=== PATIENT | male | born 1950 | race Caucasian/White ===

== ENCOUNTER 2018-10-11 22:40 | Emergency (ER) | payer BC ==
[~2018-10-11] VITALS: Ht 193 cm; Wt 121.8 kg
--- NOTE | 2018-10-11 23:05 | NUR ---
PT AMBULATORY TO ROOM FROM LOBBY
[2018-10-11] MEDS ORDERED: DIAZ2TAB3 PO (23:19)
[2018-10-11] MEDS ORDERED: TEST30SO SQ (23:19)
[2018-10-11] MEDS ORDERED: TRIA50CA PO (23:19)
--- NOTE | 2018-10-11 23:19 | NUR ---
DR. GOMEZ AT BEDSIDE TO SEE PATIENT, PT WITH RUPTURED VARICOSE VEIN IN R INNER ANKLE. BLEEDING CONTROLLED AT THIS TIME.
[2018-10-12 00:26] VITALS: BP 104/56
--- NOTE | 2018-10-12 00:26 | NUR ---
Patient/Caregiver given discharge instructions and they have confirmed that they understand the instructions. Patient ambulatory with steady gait.
== END 2018-10-12 00:28 | disposition home or self-care (01) ==
LOC: ED 10-12 00:10
DX: I83.892 Varicose veins of left lower extremity with other complications (principal)
CPT/HCPCS: 99284

== ENCOUNTER → 2020-02-04 | Outpatient (CLI) | payer MEDICARE ==
[~2020-02-04] MED LIST: DIAZ2TAB3 PO; FLUT9.9S NAS; TEST100V2 INJ; TEST30SO SQ; TRIA1CAP3 PO; TRIA50CA PO
[2020-02-04 11:17] LABS: BASOPHILS # (AUTO) 0.03 x10^3/uL (0-0.1); BASOPHILS % (AUTO) 1 % (0-1); EOSINOPHILS # (AUTO) 0.17 x10^3/uL (0-0.4); EOSINOPHILS % (AUTO) 3 % (1-7); LYMPHOCYTES % (AUTO) 21 % (22-44); MD NO; MEAN CORPUSCULAR HEMOGLOBIN 32.7 pg (27.5-34.5); MEAN CORPUSCULAR HGB CONC 33.8 g/dL (33.2-36.2); MEAN CORPUSCULAR VOLUME 96.7 fL (81-97); MEAN PLATELET VOLUME 6.5 fL (7.4-10.4); MONOCYTES # (AUTO) 0.46 x10^3/uL (0.2-0.8); MONOCYTES % (AUTO) 9 % (2-9); NEUTROPHILS # (AUTO) 3.45 x10^3/uL (1.8-6.8); NEUTROPHILS % (AUTO) 66 % (42-75); PLATELET COUNT 211 x10^3/uL (130-400); RED CELL DISTRIBUTION WIDTH 13.4 % (9.4-14.8)
[2020-02-04 11:26] LABS: ALANINE AMINOTRANSFERASE 25 U/L (12-78); ALBUMIN 3.8 g/dL (3.4-5.0); ANION GAP 4 mmol/L (5-15); CALCIUM 8.9 mg/dL (8.5-10.1); CHLORIDE 108 mmol/L (98-107); CREATININE 1.29 mg/dL (0.7-1.3)
[2020-02-04 11:29] LABS: ALKALINE PHOSPHATASE 49 U/L (45-117); BILIRUBIN,TOTAL 0.8 mg/dL (0.2-1.0); TOTAL PROTEIN 7.2 g/dL (6.4-8.2)
== END | disposition home or self-care (01) ==
LOC: STAR 10:05
PROVIDERS: ATTEND Surgery
DX: Z01.818 Encounter for other preprocedural examination (principal); I83.812 Varicose veins of left lower extremity with pain; M43.8X4 Other specified deforming dorsopathies, thoracic region; I44.4 Left anterior fascicular block; R94.31 Abnormal electrocardiogram [ECG] [EKG]
CPT/HCPCS: 36415; 71046; 80053; 85025; 93005

== ENCOUNTER 2020-02-12 10:02 | Day surgery (SDC) | payer MEDICARE ==
[~2020-02-12] VITALS: Ht 193 cm; Wt 123.8 kg
[2020-02-12] MEDS ORDERED: LACTATED RINGERS 1,000 ML IV SCH (11:05)
[2020-02-12 11:08] VITALS: BP 125/79
[2020-02-12] MEDS ORDERED: CHLORHEXIDINE 15 ML UDC MM ONE (11:30)
[2020-02-12] MEDS ORDERED: SODIUM BICARBONATE 4.2%, 5ML ONE (12:37)
[2020-02-12] MEDS ORDERED: LIDOCAINE/MPF 2%-EPI 1:200K, 20 ML ONE (12:37)
[2020-02-12] MEDS ORDERED: FENTANYL PF 250 MCG/5ML ONE (12:52)
[2020-02-12] MEDS ORDERED: MIDAZOLAM 1 MG/ML, 2ML ONE (12:52)
[2020-02-12] MEDS ORDERED: LIDOCAINE/MPF 2%-EPI 1:200K, 20 ML INFIL ONE (13:15)
[2020-02-12] MEDS ORDERED: SODIUM BICARBONATE 4.2%, 5ML IV ONE (13:15)
[2020-02-12] MEDS ORDERED: ACETAMINOPHEN 325 MG TABLET PO PRN (13:30)
[2020-02-12] MEDS ORDERED: ONDANSETRON 2MG/ML, 2ML IVPush PRN (13:30)
[2020-02-12] MEDS ORDERED: HYDROmorphone 1 MG/ML, 1ML INJ IVPush PRN (13:30)
[2020-02-12] MEDS ORDERED: DIAZEPAM 5 MG/ML, 2ML IVPush PRN (13:30)
[2020-02-12] MEDS ORDERED: FENTANYL PF 100 MCG/2ML IV PRN (13:30)
[2020-02-12] MEDS ORDERED: HYDROcodone/APAP 7.5-325MG/15ML UDC PO PRN (13:30)
[2020-02-12] MEDS ORDERED: PROMETHAZINE 25 MG SUPP PR PRN (13:30)
[2020-02-12] MEDS ORDERED: PROMETHAZINE 25 MG/ML, 1ML IVPush PRN (13:30)
[2020-02-12] MEDS ORDERED: hydrALAzine 20 MG/ML, 1ML IV PRN (13:30)
[2020-02-12] MEDS ORDERED: LABETALOL 5MG/ML, 20ML IV PRN (13:30)
[2020-02-12] MEDS ORDERED: LORazepam 2 MG/ML, 1ML IVPush PRN (13:30)
[2020-02-12] MEDS ORDERED: ONDANSETRON 2MG/ML, 2ML ONE (14:54)
[2020-02-12] MEDS ORDERED: CEFAZOLIN 1,000 MG ONE (14:54)
[2020-02-12] MEDS ORDERED: PROPOFOL 10 MG/ML, 20ML ONE (14:54)
[2020-02-12] MEDS ORDERED: DEXAMETHASONE 4 MG/ML, 1ML ONE (14:54)
[2020-02-12] MEDS ORDERED: HYDROcodone/APAP 7.5-325MG/15ML UDC ONE (15:27)
== END 2020-02-12 17:00 | disposition home or self-care (01) ==
LOC: OUT 10:02
PROVIDERS: ATTEND Surgery
DX: I83.812 Varicose veins of left lower extremity with pain (principal); Z11.59 Encounter for screening for other viral diseases; I10 Essential (primary) hypertension; Z98.890 Other specified postprocedural states; Z72.89 Other problems related to lifestyle; Z88.8 Allergy status to other drugs, medicaments and biological substances; Z79.899 Other long term (current) drug therapy
CPT/HCPCS: 36415; 37766; 87635; J0690; J1100; J2250; J2405; J2704; J3010; J3490; J7120